=== PATIENT | female | born 1995 | race Two or more races ===

== ENCOUNTER 2016-05-27 14:33 | Emergency (ER) | payer BC ==
[2016-05-27] MEDS ORDERED: ALBUTEROL/IPRATROPIUM 2.5/0.5 MG 3 ML/EACH DOSE ONE (15:16)
--- NOTE | 2016-05-27 15:16 | RAD ---
CHEST - 2 VIEWS COMPARISON: None. HISTORY: Chest pain and shortness of breath. FINDINGS: Views: Frontal and lateral chest Lungs: Normal Heart and vessels: Normal Trachea and bronchi: Normal Mediastinum and alma rosa: Normal Costophrenic sulci: Normal Chest wall and bones: Normal. Upper abdomen: Normal. IMPRESSION: Negative 2 view chest.
[2016-05-27] MEDS ORDERED: PREDNISONE 20 MG TABLET ONE (15:35)
== END 2016-05-27 16:04 | disposition home or self-care (01) ==
LOC: ED 14:33
DX: J45.909 Unspecified asthma, uncomplicated (principal); M94.0 Chondrocostal junction syndrome [Tietze]